=== PATIENT | female | born 1955 | race Caucasian/White ===

== ENCOUNTER → 2019-12-23 14:50 | Outpatient (BNVA) | payer BC, SELFPAY | PROVIDERS: Family Provider Nurse Practitioner Family; PCP Nurse Practitioner Family; Visit Provider Nurse Practitioner Family | DX: D22.9 Melanocytic nevi, unspecified (principal); E78.5 Hyperlipidemia, unspecified; Z79.899 Other long term (current) drug therapy | CPT/HCPCS: 80053; 80061; 88305 ==

== ENCOUNTER 2020-01-06 13:30 | Outpatient (CLI) | payer BC, SELFPAY ==
--- NOTE | 2020-01-06 14:15 | XR_ITS ---
WS: [id number] EXAM: XR DEXA axial skeleton* [id number] DATE OF EXAMINATION: 01/06/2020, 1337 hours COMPARISON: None. HISTORY: 64 years year old female. Screening for osteoporosis. Postmenopausal per FINDINGS: Bone density of L1 through L4 is estimated at 0.995 g/cm sq: T-score of -1.5. This falls in the rang e of osteopenia. Bilateral proximal femur regions have bone mineral density estimated at 0.916 and 0.984 g/cm sq, righ t and left respectively, correlating with a T-score of -0.7 and -0.2. This falls in the range of norm al. 10-year fracture risk for major osteoporotic fracture is 8.4%. XR/XR DEXA axial skeleton* [id number] IMPRESSION: Osteopenia in the lumbar spine region. Estimated bone density within both proxi mal femur regions within normal limits.
== END 2020-01-06 13:31 | disposition home or self-care (01) ==
LOC: RADWPI 13:30
PROVIDERS: PCP Nurse Practitioner Family; Visit Provider Nurse Practitioner Family
DX: Z13.820 Encounter for screening for osteoporosis (principal); M85.89 Other specified disorders of bone density and structure, multiple sites
CPT/HCPCS: 77080

== ENCOUNTER 2020-02-24 09:46 | Outpatient (CLI) | payer BC, SELFPAY ==
--- NOTE | 2020-02-24 09:54 | XR_ITS ---
WS: [id number] LUMBAR SPINE: 3 VIEWS TECHNIQUE: AP, lateral and L5-S1 spot. HISTORY: back pain COMPARISON: None available. Straightening of the normal lumbar lordosis. No acute fracture. Osteopenia with small endplate osteophytes. Moderate facet joint arthritis at L4-5 and L5-S1. Prior cholecystectomy. XR/XR lumbar spine 2-3V* [id number] IMPRESSION: 1. No acute fracture. 2. Mild spondylosis and osteopenia.
== END 2020-02-24 09:47 | disposition home or self-care (01) ==
LOC: RADWPI 09:51
PROVIDERS: PCP Nurse Practitioner Family; Visit Provider Nurse Practitioner Family
DX: M47.816 Spondylosis without myelopathy or radiculopathy, lumbar region (principal); M85.88 Other specified disorders of bone density and structure, other site
CPT/HCPCS: 72100

== ENCOUNTER 2020-04-17 08:57 | Outpatient (CLI) | payer MEDICARE, SELFPAY ==
--- NOTE | 2020-04-17 09:30 | MM_ITS ---
WS: [id number] BILATERAL DIGITAL DIAGNOSTIC MAMMOGRAM MAMMOGRAPHY WITH CAD CLINICAL INFORMATION: unspecified lump in unspecified breast COMPARISON: March 17, 2020 outside examination TECHNIQUE: Bilateral CC, MLO, and ML views. FINDINGS: The breasts are composed of heterogeneous fibroglandular density, which can limit the detection of sm all underlying mass lesions. Asymmetric density in the deep right breast best seen on the cc view is unchanged. Vascular calcification. Punctate and lucent centered calcifications. Ultrasound is pending. ULTRASOUND BREAST BILATERAL TECHNIQUE: Ultrasound bilateral breast focused area of concern. CLINICAL INFORMATION: unspecified lump in unspecified breast FINDINGS: Ultrasound right breast 12:00 position is normal. Dense parenchymal tissue at the 6 clock position in the area of prior surgery likely represents scar tissue but indeterminant. Recommend 6 month follow- up to confirm stability. Incidental left breast cyst at the 12:00 position near the areola measuring 8.8 x 7.8 mm. MM/[place] [facility] [place] [id number] IMPRESSION: BI-RADS: 3-Probably Benign FOLLOW UP: 6 Month Follow-up Recommend 6 month follow-up right breast diagnostic mammography and ultrasound
--- NOTE | 2020-04-17 10:15 | US_ITS ---
WS: [id number] BILATERAL DIGITAL DIAGNOSTIC MAMMOGRAM MAMMOGRAPHY WITH CAD CLINICAL INFORMATION: unspecified lump in unspecified breast COMPARISON: March 17, 2020 outside examination TECHNIQUE: Bilateral CC, MLO, and ML views. FINDINGS: The breasts are composed of heterogeneous fibroglandular density, which can limit the detection of sm all underlying mass lesions. Asymmetric density in the deep right breast best seen on the cc view is unchanged. Vascular calcification. Punctate and lucent centered calcifications. Ultrasound is pending. ULTRASOUND BREAST BILATERAL TECHNIQUE: Ultrasound bilateral breast focused area of concern. CLINICAL INFORMATION: unspecified lump in unspecified breast FINDINGS: Ultrasound right breast 12:00 position is normal. Dense parenchymal tissue at the 6 clock position in the area of prior surgery likely represents scar tissue but indeterminant. Recommend 6 month follow- up to confirm stability. Incidental left breast cyst at the 12:00 position near the areola measuring 8.8 x 7.8 mm. US/US breast BI limited* [id number] IMPRESSION: BI-RADS: 3-Probably Benign FOLLOW UP: 6 Month Follow-up Recommend 6 month follow-up right breast diagnostic mammography and ultrasound
== END 2020-04-17 08:58 | disposition home or self-care (01) ==
LOC: RADSHAW 09:03
PROVIDERS: PCP Nurse Practitioner Family; Visit Provider Nurse Practitioner Family
DX: N60.02 Solitary cyst of left breast (principal)
CPT/HCPCS: 76642; 77066

== ENCOUNTER 2020-11-07 10:17 | Outpatient (CLI) | payer MEDICARE, SELFPAY ==
--- NOTE | 2020-11-07 10:26 | MM_ITS ---
WS: [id number] RIGHT DIGITAL MAMMOGRAPHY WITH CAD CLINICAL INFORMATION: N63.10 - Unspecified lump in the right breast, unspecifie... HISTORY: Six-month follow-up COMPARISON: April 17, 2020 TECHNIQUE: 4 views of the right breast were obtained. FINDINGS: Scattered fibroglandular densities of the right breast. Vascular calcification. Asymmetric density in the posterior right breast best seen on the cc view is less conspicuous today compared to previous. Punctate and lucent centered calcifications. Ultrasound is pending. ULTRASOUND BREAST RIGHT TECHNIQUE: Ultrasound right breast focused area of concern. CLINICAL INFORMATION: N63.10 - Unspecified lump in the right breast, unspecifie... FINDINGS: Ultrasound right breast 12:00 position and 6:00 position. Again seen is dense parenchymal tissue 6:00 position in the area of prior lumpectomy. This is unchanged from previous. No other suspicious findings. No lesions to target for biopsy. Recommend return to annual diagnostic mammography. MM/[place] [id number] IMPRESSION: BI-RADS: 2-Benign FOLLOW UP: 1 Year Follow-up Recommend return to annual diagnostic mammography.
== END 2020-11-07 10:18 | disposition home or self-care (01) ==
LOC: RADSHAW 10:25
PROVIDERS: PCP Nurse Practitioner Family; Visit Provider Nurse Practitioner Family
DX: N63.10 Unspecified lump in the right breast, unspecified quadrant (principal)
CPT/HCPCS: 76642; 77065

== ENCOUNTER → 2021-09-14 08:47 | Outpatient (BNVA) | payer MEDICARE, SELFPAY | PROVIDERS: PCP Nurse Practitioner Family; Visit Provider Nurse Practitioner Family | DX: I10 Essential (primary) hypertension (principal) | CPT/HCPCS: 80053; 80061 ==

== ENCOUNTER 2022-06-03 14:15 | Outpatient (CLI) | payer MEDICARE, SELFPAY ==
--- NOTE | 2022-06-03 14:40 | MM_ITS ---
WS: [id number] BILATERAL 3D TOMOSYNTHESIS DIGITAL DIAGNOSTIC MAMMOGRAPHY WITH CAD CLINICAL INFORMATION: HX OF BREAST C COMPARISON: 2020 TECHNIQUE: Bilateral CC, MLO, and ML views. FINDINGS: Scattered fibroglandular densities bilaterally. Punctate and lucent centered calcifications are stabl e. No suspicious focal mass, asymmetry, calcifications, or architectural distortion. No evidence of jorge gnancy. MM/[place] [id number] IMPRESSION: BI-RADS: 2-Benign FOLLOW UP: 1 Year Follow-up Recommend return to annual diagnostic mammography.
== END 2022-06-03 14:16 | disposition home or self-care (01) ==
LOC: RAD 14:20
PROVIDERS: PCP Nurse Practitioner Family; Visit Provider Nurse Practitioner Family
DX: Z85.3 Personal history of malignant neoplasm of breast (principal)
CPT/HCPCS: 77062; G0279

== ENCOUNTER 2022-09-04 11:51 | Outpatient (CLI) | payer MEDICARE, SELFPAY ==
[2022-09-04 12:17] VITALS: BMI 33.2
--- NOTE | 2022-09-04 12:18 | ECG_ITS ---
[facility] Test Date: 2022-09-04 Pat Name: Vianney Sosa Department: Room: Gender: Female [employer]: : 1955 Requested By: Qi Dacosta Order Number: [id number] Ana MD: Israel Arreguin M.D. Interpretive Statements NAME OF STUDY: TREADMILL STRESS TEST INDICATION: [, ] EXERCISE DATA: The patient was exercised by Rigoberto protocol. Baseline heart rate was 72 beats per minute. Baseline blood pressure was 153/92 millimeters of mercury. Target heart rate was 130 beats per minute. Maximum heart rate achieved was 138, which was 106% of the target heart rate. Maximum blood pressure was 210/81 millimeters of mercury. Total exercise time was 3 minutes and 29 seconds. Maximum METs achieved was 7.0. The reason for ending the test was maximum effort achieved. ELECTROCARDIOGRAM: BASELINE: Showed sinus rhythm, normal axis, no significant ST-T changes at the baseline noted. [] EXERCISE: At the peak exercise level, [] No significant ST-T changes suggestive of ischemia noted. [] RECOVERY: During the recovery period, heart rate dropped appropriately. No significant ST-T changes in the recovery suggestive of ischemia noted. [] CONCLUSION: 1. Exercise capacity is poor 2. Heart rate response was appropriate. 3. Blood pressure response was appropriate. 4. Symptoms not suggestive of ischemia. 5. Stress test is negative for ischemia Electronically Signed On 09-23-2022 10:25:42 CDT by Israel Arreguin M.D. [email or web address]
[2022-09-04 13:44] VITALS: BP 186/79; PULSE 98
== END 2022-09-04 11:52 | disposition home or self-care (01) ==
PROVIDERS: PCP Nurse Practitioner Family; Visit Provider Nurse Practitioner Family
DX: R06.02 Shortness of breath (principal)
CPT/HCPCS: 93017

== ENCOUNTER 2022-09-09 06:56 | Outpatient (CLI) | payer MEDICARE, SELFPAY ==
--- NOTE | 2022-09-09 07:00 | USCV_ITS ---
Vianney Sosa Age: 67 Gender: F : 1955 Exam Date: 09/09/2022 07:10 Ordering Phys: Clarence Griffiths Technologist: Exam Location: [facility] [place] Indication: sob BP: 130 / 70 HR: 60 Rhythm: Sinus Technical Quality: Adequate MEASUREMENTS (Male / Female) Normal Values 2D ECHO LV Diastolic Diameter PLAX 4.9 cm 4.2 - 5.9 / 3.9 - 5.3 cm LV Systolic Diameter PLAX 3.0 cm IVS Diastolic Thickness 1.3 cm 0.6 - 1.0 / 0.6 - 0.9 cm IVS Systolic Thickness 2.0 cm LVPW Diastolic Thickness 1.1 cm 0.6 - 1.0 / 0.6 - 0.9 cm LVPW Systolic Thickness 1.8 cm LVOT Diameter 2.0 cm LV Ejection Fraction 2D Teich 69.7 % LV Ejection Fraction MOD 2C 60.2 % LV Ejection Fraction 2C AL 59.9 % LA Diameter 4.0 cm Aorta at Sinotubular Diameter 3.0 cm IVC Diameter 1.7 cm M-MODE Aortic Annulus Diameter 4.3 cm LA Ao Ratio MM 1.1 MV E Point Septal Separation 1.3 cm DOPPLER AV Peak Velocity 131.0 cm/s LVOT Peak Velocity 89.0 cm/s AV Area Cont Eq vti 2.0 cm squared AV Area Cont Eq pk 2.2 cm squared MV Area PHT 5.0 cm squared Mitral E to A Ratio 0.8 MV E' Velocity 35.0 cm/s Mitral E to MV E' Ratio 7.1 Mitral E to LV E' Lateral Ratio 7.0 Mitral E to LV E' Septal Ratio 7.2 TR Peak Velocity 261.3 cm/s TR Peak Gradient 27.3 mmHg TV Peak E Velocity 81.0 cm/s Right Atrial Pressure 3.0 mmHg Pulmonary Artery Systolic Pressu 30.3 mmHg RV Acceleration Time 0.2 s FINDINGS Left Ventricle Left ventricle is normal in size. LV systolic function is normal with EF of 55 to 60%. No regional wall motion abnormalities are seen. Grade 1 diastolic dysfunction. Right Ventricle Normal in size and function Right Atrium Normal in size Left Atrium Normal in size Mitral Valve Structurally normal mitral valve. Mild mitral regurgitation. Aortic Valve Structurally normal aortic valve. Mild aortic regurgitation. No significant stenosis. Tricuspid Valve Mild tricuspid regurgitation. RVSP is 30 to 35 mmHg. Pulmonic Valve Not well-visualized. Pericardium Normal Aorta Normal in size IVC Appears to be normal CONCLUSIONS LV systolic function is normal with EF 55 to 60%. Grade 1 diastolic dysfunction Mild mitral regurgitation Mild aortic regurgitation Mild tricuspid regurgitation No comparison studies are available Israel Arreguin MD (Electronically Signed) Final Date: 14 September 2022 16:41 S
== END 2022-09-09 06:57 | disposition home or self-care (01) ==
LOC: RAD 06:58
PROVIDERS: PCP Nurse Practitioner Family; Visit Provider Nurse Practitioner Family
DX: I50.9 Heart failure, unspecified (principal); I34.0 Nonrheumatic mitral (valve) insufficiency; I35.1 Nonrheumatic aortic (valve) insufficiency; I07.1 Rheumatic tricuspid insufficiency
CPT/HCPCS: 80053; 84443; 85025; 93306

== ENCOUNTER 2022-10-23 10:45 | Outpatient (CLI) | payer MEDICARE, SELFPAY ==
--- NOTE | 2022-10-23 11:00 | USR_ITS ---
PROCEDURE INFORMATION: Exam: US Duplex Bilateral Lower Extremity Arteries Exam date and time: 10/23/2022 11:08 AM Age: 67 years old Clinical indication: Edema, localized; Lower extremity, bilateral; Patient HX: Ankles were swollen last long trip; Additional info: I73.9 - peripheral vascular disease, unspecified TECHNIQUE: Imaging protocol: Real-time ultrasound scan of the arteries of the bilateral lower extremities with 2-D morales scale, color Doppler flow and spectral waveform analysis. Images documented and saved. COMPARISON: No relevant prior studies available. FINDINGS: Right common femoral artery: No occlusion or significant stenosis. Normal waveform. Right superficial femoral artery: No occlusion or significant stenosis. Normal waveform. Right popliteal artery: No occlusion or significant stenosis. Normal waveform. Right calf/foot arteries: No occlusion or significant stenosis in the visualized arteries. Normal waveforms. Dorsalis pedis artery is patent. Left common femoral artery: No occlusion or significant stenosis. Normal waveform. Left superficial femoral artery: No occlusion or significant stenosis. Normal waveform. Left popliteal artery: No occlusion or significant stenosis. Normal waveform. Left calf/foot arteries: No occlusion or significant stenosis in the visualized arteries. Normal waveforms. Dorsalis pedis artery is patent. US/CV arterial duplex [facility] [id number] IMPRESSION: No stenosis or occlusion.
== END 2022-10-23 10:46 | disposition home or self-care (01) ==
PROVIDERS: PCP Nurse Practitioner Family; Visit Provider Nurse Practitioner Family
DX: I73.9 Peripheral vascular disease, unspecified (principal)
CPT/HCPCS: 93925

== ENCOUNTER → 2022-10-30 13:50 | Outpatient (BNVA) | payer MEDICARE, SELFPAY | PROVIDERS: PCP Nurse Practitioner Family; Visit Provider Surgery | DX: K21.9 Gastro-esophageal reflux disease without esophagitis (principal); R11.2 Nausea with vomiting, unspecified; R10.13 Epigastric pain; Z86.010 Personal history of colon polyps; Z90.49 Acquired absence of other specified parts of digestive tract; R22.1 Localized swelling, mass and lump, neck; L57.8 Other skin changes due to chronic exposure to nonionizing radiation; L72.0 Epidermal cyst; L81.4 Other melanin hyperpigmentation; L82.1 Other seborrheic keratosis; L82.0 Inflamed seborrheic keratosis; D22.5 Melanocytic nevi of trunk; L57.0 Actinic keratosis; Z71.89 Other specified counseling | CPT/HCPCS: 11104; 17000; 17003; 17110; 99203 ==

== ENCOUNTER → 2022-11-08 08:53 | Outpatient (BNVA) | payer MEDICARE, SELFPAY | PROVIDERS: PCP Nurse Practitioner Family; Visit Provider Nurse Practitioner Family | DX: Z48.02 Encounter for removal of sutures (principal) | CPT/HCPCS: 99024 ==

== ENCOUNTER 2022-11-27 07:04 | Day surgery (SDC) | payer MEDICARE, SELFPAY ==
[2022-11-25 10:36] VITALS: BMI 32.7
[2022-11-27 07:20] VITALS: BP 139/78; PULSE 60; RESP 16; TEMP 36.1; O2SAT 95
[2022-11-27] MEDS: sodium chloride 0.9% 1,000 ML 30 ML IV (07:30)
--- NOTE | 2022-11-27 08:43 | W.PM.OPSUD ---
Surgery/Procedure H&P Update DATE OF PROCEDURE: November 27, 2022 DATE H&P PERFORMED: 10/30/22 H&P UPDATE INFORMATION: I have reviewed H&P completed within last 30 days, I have examined patient prior to procedure and No changes to prior documentation PLANNED PROCEDURE: Operation Date: 11/27/22 08:15 [place] Procedures p [address] egd K21.9(Not Applicable) - Dm Zuniga,
[2022-11-27 09:07] VITALS: BP 97/53; PULSE 57; RESP 17; TEMP 36.8; O2SAT 90
[2022-11-27 09:19] VITALS: BP 117/77; PULSE 63; RESP 16; TEMP 36.8; O2SAT 96
--- NOTE | 2022-11-27 09:20 | ANE.PACU2 ---
Inpatient post-anesthesia follow up: Airway intact: Yes Vital signs: Temperature 98.3 F Pulse Rate 63 Respiratory Rate 16 Blood Pressure 117/77 Pulse Oximetry 96 Oxygen Delivery Me thod Room Air Oxygen Flow Rate Fraction of Inspir ed Oxygen Hydration adequate: Yes Nausea and vomiting: Yes Pain level: 1 Mental status: Baseline
== END 2022-11-27 09:40 | disposition home or self-care (01) ==
PROVIDERS: PCP Nurse Practitioner Family; Visit Provider Surgery
DX: K21.9 Gastro-esophageal reflux disease without esophagitis (principal); K31.89 Other diseases of stomach and duodenum
CPT/HCPCS: 43235; J2704; J7030

== ENCOUNTER 2023-01-08 07:36 | Outpatient (CLI) | payer MEDICARE, SELFPAY ==
--- NOTE | 2023-01-08 08:00 | NM_ITS ---
WS: [id number] NUCLEAR MEDICINE GASTRIC STUDY CLINICAL INFORMATION: GERD TECHNIQUE: Following oral ingestion of cooked egg mixed with 1.03 mCi technetium 99m sulfur colloid, anterior images of the stomach were obtained over the course of 90 minutes. Activity curve was perfor med over the course of 90 minutes with linear regression analysis. COMPARISON: None. FINDINGS: Oral ingestion of technetium labeled sulfur colloid cooked egg mixture. T1 half =150 minutes (normal 45-110 minutes) 19% emptying at 61 minutes. 38% emptying at 120 minutes. IMPRESSION: Delayed gastric emptying with T1 half 150 minutes *Normal median T1 half 90 minutes for solid egg meal (45-110 minutes). Delayed gastric retention is defined as 90% retained at 1 hour, 60% at 2 hours, 30% at 3 hours, and 10% at 4 hours (normal percent gastric retention is 37-90% at 1 hour, 30-60% at 2 hours, and 0-10% a t 4 hours).
== END 2023-01-08 07:37 | disposition home or self-care (01) ==
PROVIDERS: PCP Nurse Practitioner Family; Visit Provider Surgery
DX: K21.9 Gastro-esophageal reflux disease without esophagitis (principal); K30 Functional dyspepsia
CPT/HCPCS: 78264; A9541

== ENCOUNTER → 2023-02-05 13:35 | Outpatient (BNVA) | payer MEDICARE, SELFPAY | PROVIDERS: PCP Nurse Practitioner Family; Visit Provider Surgery | DX: Z09 Encounter for follow-up examination after completed treatment for conditions other than malignant neoplasm (principal); K30 Functional dyspepsia | CPT/HCPCS: 99213 ==

== ENCOUNTER → 2023-03-05 12:42 | Outpatient (BNVA) | payer MEDICARE, SELFPAY | PROVIDERS: PCP Nurse Practitioner Family; Visit Provider Surgery | DX: K30 Functional dyspepsia (principal); K21.9 Gastro-esophageal reflux disease without esophagitis | CPT/HCPCS: 99213 ==

== ENCOUNTER → 2023-05-21 10:43 | Outpatient (BNVA) | payer MEDICARE, SELFPAY | PROVIDERS: PCP Nurse Practitioner Family; Visit Provider Nurse Practitioner Family | DX: L57.8 Other skin changes due to chronic exposure to nonionizing radiation (principal); D22.4 Melanocytic nevi of scalp and neck; L81.4 Other melanin hyperpigmentation; L82.0 Inflamed seborrheic keratosis; L21.8 Other seborrheic dermatitis; L82.1 Other seborrheic keratosis; L91.8 Other hypertrophic disorders of the skin | CPT/HCPCS: 17110; 99214 ==

== ENCOUNTER → 2023-08-28 10:07 | Outpatient (BNVA) | payer MEDICARE, SELFPAY | PROVIDERS: PCP Nurse Practitioner Family; Visit Provider Nurse Practitioner Family | DX: I10 Essential (primary) hypertension (principal) | CPT/HCPCS: 80053; 81000; 85025 ==

== ENCOUNTER → 2024-06-15 08:16 | Outpatient (BNVA) | payer MEDICARE, SELFPAY | PROVIDERS: PCP Nurse Practitioner Family; Visit Provider Nurse Practitioner Family | DX: I10 Essential (primary) hypertension (principal); Z79.899 Other long term (current) drug therapy | CPT/HCPCS: 80053; 80061; 81000; 83036; 85025 ==

== ENCOUNTER 2024-07-28 11:03 | Outpatient (CLI) | payer MEDICARE, SELFPAY ==
--- NOTE | 2024-07-28 11:30 | MM_ITS ---
WS: [id number] BILATERAL SCREENING DIGITAL TOMOSYNTHESIS MAMMOGRAM WITH CAD HISTORY: Z98.890 - Other specified postprocedural states COMPARISON: 06/03/2022, 11/07/2020, 03/17/2020 Bilateral CC and MLO views with tomosynthesis and synthetic mammography submitted. Computer aided detection analyzed. Breast composition: There are scattered areas of fibroglandular density. No suspicious masses, microcalcifications or architectural distortion. Scattered asymmetries and calcifications are stable. There is a focal asymmetry in the central RIGHT breast which has been present on prior studies with no pro gression. MM/MM diag BI tomosynthesis [id number] IMPRESSION: BI-RADS: 2 - Benign. FOLLOW UP: 1 Year Follow-up
== END 2024-07-28 11:04 | disposition home or self-care (01) ==
LOC: RAD 11:04
PROVIDERS: PCP Nurse Practitioner Family; Visit Provider Nurse Practitioner Family
DX: Z98.890 Other specified postprocedural states (principal); R92.323 Mammographic fibroglandular density, bilateral breasts; R92.1 Mammographic calcification found on diagnostic imaging of breast; N64.89 Other specified disorders of breast
CPT/HCPCS: 77062; G0279

== ENCOUNTER → 2025-02-17 13:10 | Outpatient (BNVA) | payer MEDICARE, SELFPAY | PROVIDERS: PCP Nurse Practitioner Family; Visit Provider Student in an Organized Health Care Education/Training Program | DX: Z12.11 Encounter for screening for malignant neoplasm of colon (principal) | CPT/HCPCS: 99024; 99204 ==

== ENCOUNTER 2025-02-24 06:13 | Day surgery (SDC) | payer MEDICARE, SELFPAY ==
[2025-02-24 06:29] VITALS: BP 144/81; PULSE 80; RESP 17; TEMP 36.1; O2SAT 96; BMI 31.4
--- NOTE | 2025-02-24 07:01 | W.PM.OPSUD ---
Surgery/Procedure H&P Update DATE OF PROCEDURE: February 24, 2025 DATE H&P PERFORMED: 02/17/25 H&P UPDATE INFORMATION: I have reviewed H&P completed within last 30 days, I have examined patient prior to procedure, No changes to prior documentation and Risks and benefits of the procedure reviewed PLANNED PROCEDURE: Operation Date: 02/24/25 07:30 Proposed Procedures p Colonoscopy 84373 G0105 Z12.11(Not Applicable) - Neo Lujan MD
--- NOTE | 2025-02-24 07:09 | ANES.PREANE2 ---
Pre-Anesthetic Assessment Height/Weight: Height 1.7 m Weight 91.172 kg Temp Pulse Resp BP Pulse Ox O2 Del Method 97.0 F L 80 17 144/81 96 Room Air 02/24/25 06:29 02/24/25 06:29 02/24/25 06:29 02/24/25 06:29 02/24/25 06:29 02/24/25 06:29 Preop Diagnosis: bowel changes Operation Date: 02/24/25 07:30 Proposed Procedures p Colonoscopy 20353 G0105 Z12.11(Not Applicable) - Neo Lujan MD Familial anesthetic complications: none Was Beta Joseph taken within 24 hours: N/A (takes lisinopril. LD 10.8.25 pm) Was Clonidine taken within 24 hours: N/A Last intake: Intake Last Liquid Date 02/23/25 Last Liquid Time 22:00 Last Solid Date 02/22/25 Last Solid Time 22:00 Social No alcohol and No tobacco Exam alert, oriented x 3, clear to auscultation bilaterally and regular rate & rhythm Airway Submandibular: within normal limits Cervical ROM: within normal limits Mallampati: Class III (smo) Dentition: full History/ROS No significant history except as noted Pulmonary None reported CV/HEM Hypertension None reported Hepatic None reported GI Gastroesophageal Reflux Disease Metabolic None reported Musc/skel Lower Back Pain (chronic) and Osteoarthritis/DJD Neuropsych Anxiety (situational) and Neuropathy (LE meng) Anesthetic Plan ASA status: 3 Anesthesia: MAC Risk of > 500 ml blood loss (7ml/kg in children): No Medications/Allergies Home Medications ?Medication ?Instructions ?Recorded ?Confirmed ?Last Taken ?Type aspirin 81 mg chewable tablet 81 mg PO DAILY 12/16/19 02/24/25 02/23/25 History gabapentin 100 mg capsule 100 mg PO .hs neuropathy #90 caps 06/16/24 02/24/25 02/23/25 Rx omeprazole 40 mg capsule,delayed 40 mg PO DAILY #90 caps 06/30/24 02/24/25 02/23/25 Rx release alprazolam 0.5 mg tablet (Xanax) 0.5 mg PO DAILY PRN anxiety #30 02/10/25 02/24/25 02/21/25 Rx tabs hydrocodone 5 mg-acetaminophen 325 1 tab PO BID PRN pain 5 days #20 02/10/25 02/24/25 02/21/25 Rx mg tablet tabs lactulose 10 gram/15 mL oral 15 ml PO TID #300 mL 02/10/25 02/24/25 02/21/25 Rx solution lisinopril 20 mg tablet 20 mg PO DAILY #90 tabs 02/10/25 02/24/25 02/23/25 Rx metoclopramide HCl 5 mg tablet 5 mg PO DAILY PRN Stomach Upset 02/21/25 02/24/25 02/23/25 History Allergies Allergy/AdvReac Type Severity Reaction Status Date / Time No Known Allergies Allergy Verified 02/24/25 06:26 Current Medications Generic Name Dose Route Start Last Admin Trade Name Freq PRN Reason Stop Dose Admin Sodium Chloride 1,000 mls @ 15 mls/hr 02/24/25 06:15 02/24/25 06:39 Sodium Chloride 0.9% IV 02/25/25 06:14 15 mls/hr .Q24H PRN Administration COLONOSCOPY FLUIDS PFSH Anesthesia Medical History Change in stool Varicose vein of leg PVD (peripheral vascular disease) with claudication Congestive heart failure Breast cancer HTN, goal below 130/80 Anxiety Surgical History History of esophagogastroduodenoscopy (EGD) 08/06/16 Hx of colonoscopy with polypectomy 08/06/16 Hx of hysterectomy 1986 Hx laparoscopic cholecystectomy 1995 Hx of tonsillectomy 1972 H/O breast biopsy Right Hx of lumpectomy Right Hx of mastectomy Family History Mother No problems noted. Social History Smoking and tobacco/nicotine status: never used tobacco/nicotine Data Anesthesia Cardiac Studies: Echocardiogram 09/09/22
[2025-02-24 07:49] VITALS: BP 105/60; PULSE 71; RESP 16; TEMP 36.5; O2SAT 93
[2025-02-24 08:04] VITALS: BP 100/71; PULSE 61; RESP 16; O2SAT 95
--- NOTE | 2025-02-24 08:30 | ANE.PACU2 ---
Inpatient post-anesthesia follow up: Airway intact: Yes Vital signs: Temperature 97.7 F Pulse Rate 61 Respiratory Rate 16 Blood Pressure 100/71 Pulse Oximetry 95 Oxygen Delivery Me thod Room Air Oxygen Flow Rate Fraction of Inspir ed Oxygen Hydration adequate: Yes Nausea and vomiting: No Pain level: 1 Mental status: Baseline
== END 2025-02-24 08:30 | disposition home or self-care (01) ==
PROVIDERS: PCP Nurse Practitioner Family; Visit Provider Student in an Organized Health Care Education/Training Program
PROC: 0DJD8ZZ Inspection of Lower Intestinal Tract, Via Natural or Artificial Opening Endoscopic (ICD-10-PCS; CPT 45378; principal; 2025-02-24 07:30)
DX: Z12.11 Encounter for screening for malignant neoplasm of colon (principal); K57.30 Diverticulosis of large intestine without perforation or abscess without bleeding; D12.2 Benign neoplasm of ascending colon; I10 Essential (primary) hypertension; K21.9 Gastro-esophageal reflux disease without esophagitis; F41.9 Anxiety disorder, unspecified; G62.9 Polyneuropathy, unspecified; Z79.891 Long term (current) use of opiate analgesic; Z85.3 Personal history of malignant neoplasm of breast; I73.9 Peripheral vascular disease, unspecified; Z79.82 Long term (current) use of aspirin
CPT/HCPCS: 45385; 88305; J2704; J7030

== ENCOUNTER → 2025-03-17 14:10 | Outpatient (BNVA) | payer MEDICARE, SELFPAY | PROVIDERS: PCP Nurse Practitioner Family; Visit Provider Student in an Organized Health Care Education/Training Program | DX: Z09 Encounter for follow-up examination after completed treatment for conditions other than malignant neoplasm (principal) | CPT/HCPCS: 99213 ==